=== PATIENT | female | born 1990 | race Caucasian/White ===

== ENCOUNTER 2016-12-12 05:07 | Emergency (ER) | payer SELFPAY ==
[~2016-12-12] VITALS: Ht 157.5 cm; Wt 55.0 kg
[~2016-12-12 05:07] MED LIST: CEPH500C3 PO; IBUP600T26 PO; LEVO100T4 PO
[2016-12-12 05:10] VITALS: BP 136/68; PULSE 96; RESP 20; TEMP 97.6; O2SAT 100
[2016-12-12] MEDS ORDERED: LEXA5TAB PO (05:18)
[2016-12-12] MEDS ORDERED: LEVO100T5 PO (05:18)
[2016-12-12] MEDS ORDERED: LORazepam 2 MG/ML VIAL IM ONE (06:00)
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
--- NOTE | 2016-12-12 15:39 | EKG ---
Date Performed: 12/12/2016 Time Performed: 05:39:49 PTAGE: 26 years EKG: Sinus rhythm WITH SINUS ARRHYTHMIA NORMAL ECG NO PREVIOUS TRACING DOCTOR: Kwame Weir Interpretating Date/Time 12/12/2016 15:38:51
== END 2016-12-12 06:48 | disposition home or self-care (01) ==
LOC: NEPE 05:07
DX: F41.8 Other specified anxiety disorders (principal); E03.9 Hypothyroidism, unspecified; Z72.0 Tobacco use; Z86.59 Personal history of other mental and behavioral disorders
CPT/HCPCS: 93005; 96372; 99284; J2060

== ENCOUNTER 2016-12-26 20:21 | Emergency (ER) | payer OTHER ==
[~2016-12-26 20:21] MED LIST changes: -CEPH500C3 PO; -IBUP600T26 PO; -LEVO100T4 PO; +LEVO100T5 PO; +LEXA5TAB PO
[2016-12-26 20:33] VITALS: BP 129/83; PULSE 88; RESP 20; TEMP 98.3; O2SAT 100
[2016-12-26] MEDS ORDERED: SODIUM CHLORIDE 0.9% FLUSH 10 ML FLUSH IVF PRN (21:00)
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
[2016-12-26 21:28] VITALS: BP 102/53; PULSE 81; RESP 20; O2SAT 99
[2016-12-26 21:35] VITALS: BP 102/53; PULSE 81; RESP 20; O2SAT 99
[2016-12-26 21:40] LABS: AUTOMATED NEUTROPHIL # 14.4 TH/MM3 (1.8-7.7); BASOPHIL # 0.1 TH/MM3 (0-0.2); BASOPHIL % 0.9 % (0.0-2.0); EOSINOPHIL % 0.2 % (0.0-4.0); HEMATOCRIT 41.2 % (35.0-46.0); LYMPH % 6.5 % (9.0-44.0); LYMPHOCYTE # 1.1 TH/MM3 (1.0-4.8); MEAN CELL VOLUME 89.8 FL (80.0-100.0); MEAN CORPUSCULAR HEMOGLOBIN 31.2 PG (27.0-34.0); MEAN CORPUSCULAR HGB CONC 34.7 % (32.0-36.0); MONO % 6.1 % (0.0-8.0); NEUT % 86.3 % (16.0-70.0); PLATELET COUNT 237 TH/MM3 (150-450); RED BLOOD COUNT 4.59 MIL/MM3 (4.00-5.30); RED CELL DISTRIBUTION WIDTH 12.4 % (11.6-17.2); WHITE BLOOD COUNT 16.6 TH/MM3 (4.0-11.0)
[2016-12-26 21:42] LABS: CHLORIDE 108 MEQ/L (98-107); POTASSIUM 3.5 MEQ/L (3.5-5.1); SODIUM (NA) 139 MEQ/L (136-145)
[2016-12-26 21:46] LABS: ANION GAP 10 MEQ/L (5-15); BICARBONATE 21.5 MEQ/L (21.0-32.0); BLOOD UREA NITROGEN 8 MG/DL (7-18)
[2016-12-26 21:49] LABS: ALT (GPT) 30 U/L (10-53); AST (GOT) 41 U/L (15-37); GLOMERULAR FILTRATION RATE 89 ML/MIN (>89)
[2016-12-26 21:51] LABS: TOTAL BILIRUBIN ADULT 0.3 MG/DL (0.2-1.0)
[2016-12-26 21:52] LABS: ALKALINE PHOSPHATASE 52 U/L (45-117)
[2016-12-26 21:54] LABS: BETA HCG QUANT LESS THAN 1 MIU/ML (0-5)
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
[2016-12-26 22:32] LABS: HEMO FLAGS DIFF FINAL
[2016-12-26] MEDS ORDERED: IOHEXOL 350 MG/ML 10 ML VIAL (for RAD DIAG) IVCONTRAST ONE (22:35)
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
[2016-12-26 23:21] VITALS: BP 109/58
[2016-12-26 23:52] LABS: INTERNATIONAL NORMALIZED RATIO 0.9 RATIO; PROTHROMBIN TIME - PATIENT 10.2 SEC (9.8-11.6)
== END 2016-12-26 23:25 | disposition home or self-care (01) ==
LOC: PHED 20:21
DX: S20.219A Contusion of unspecified front wall of thorax, initial encounter (principal); S30.0XXA Contusion of lower back and pelvis, initial encounter; V89.2XXA Person injured in unspecified motor-vehicle accident, traffic, initial encounter; E03.9 Hypothyroidism, unspecified
CPT/HCPCS: 70450; 71010; 71260; 72125; 72170; 73590; 74177; 80053; 84702; 84703; 85025; 85610; 85730; 86850; 86900; 86901; 99285; Q9967

== ENCOUNTER 2017-03-09 14:50 | Emergency (ER) | payer MEDICAID ==
[~2017-03-09] VITALS: Ht 157.5 cm; Wt 57.6 kg
[2017-03-09 15:03] VITALS: BP 118/72; PULSE 94; RESP 16; TEMP 98.1; O2SAT 99
[2017-03-09 16:05] LABS: BLOOD, URINE LARGE (NEG); GLUCOSE,URINE NEG (NEG); KETONE, URINE NEG (NEG); NITRITE,URINE NEG (NEG)
--- NOTE | 2017-03-09 16:08 | PD ---
HPI Chief Complaint: Related Problem Time Seen by Provider: 16:00 Travel History International Travel<30 days: No Contact w/Intl Traveler<30days: No Traveled to known affect area: No History of Present Illness HPI 26-year-old female here for evaluation of vaginal bleeding and positive test. The patient reports that she went to her regular doctor a week ago Wednesday to have a Pap smear done, however because she was having vaginal bleeding and was thought to be on her menstrual period, this test was not performed. Patient reports having light bleeding throughout the week, and yesterday she passed purpleish/tissue-looking material. She started experiencing lower abdominal cramping yesterday, and is continuing to have some cramping today. Cramping is mild to moderate, no modifying factors. She has never been before this. No history of pelvic infections. Last menstrual period was January 29. PFSH Past Medical History Anxiety: Yes Diminished Hearing: No Thyroid Disease: Yes (HYPOTHYROIDISM) ?: LMP: 03/01/17 : 0 Past Surgical History Joint Replacement: Yes Tonsillectomy: Yes Social History Alcohol Use: No Tobacco Use: Yes (1 PPD) Substance Use: No Allergies-Medications (Allergen,Severity, Reaction): Coded Allergies: oxycodone (Unverified Allergy, Severe, ITCHING, 03/09/17) Reported Meds & Prescriptions Reported Meds & Active Scripts Active Reported Levothyroxine (Levothyroxine Sodium) 100 Mcg Tab 100 Mcg PO DAILY Lexapro (Escitalopram Oxalate) 5 Mg Tab 5 Mg PO DAILY Review of Systems Except as stated in HPI: all other systems reviewed are Neg Physical Exam Narrative GENERAL: Well-developed, well-nourished, comfortable, no acute distress. SKIN: Focused skin assessment warm/dry. HEAD: Atraumatic. Normocephalic. EYES: Pupils equal and round. No scleral icterus. No injection or drainage. ENT: Mucous membranes pink and moist. CARDIOVASCULAR: Regular rate and rhythm. No murmur appreciated. RESPIRATORY: No accessory muscle use. Clear to auscultation. Breath sounds equal bilaterally. GASTROINTESTINAL: Abdomen soft, nondistended. Mild lower abdominal/suprapubic tenderness. No rebound or guarding. CLINICAL PATHOLOGIST: Exam performed in the presence of a female nurse. Normal external genitalia. Moderate amount of clotted blood in vaginal vault coming from cervix. Cervical os is open. MUSCULOSKELETAL: No obvious deformities. No clubbing. No cyanosis. No edema. NEUROLOGICAL: Awake and alert. No obvious cranial nerve deficits. Motor grossly within normal limits. Normal speech. PSYCHIATRIC: Appropriate mood and affect; insight and judgment normal. Data Data Last Documented VS Vital Signs Date Time Temp Pulse Resp B/P (MAP) Pulse Ox O2 Delivery O2 Flow Rate FiO2 03/09/17 18:14 76 16 106/52 (70) 99 Room Air 03/09/17 15:03 98.1 Orders Orders Urinalysis - C+S If Indicated (03/09/17 15:10) Ed Urine Pregnancytest Poc (03/09/17 15:10) Complete Blood Count With Diff (03/09/17 16:05) Comprehensive Metabolic Panel (03/09/17 16:05) Gc And Chlamydia Pcr (03/09/17 16:05) Wet Prep Profile (03/09/17 16:05) Beta Hcg (Quant/Titer) (03/09/17 16:42) Us Pelvis (Ques Pr/Ect)W Trans (03/09/17 ) Labs Laboratory Tests Test 03/09/17 15:55 03/09/17 16:15 03/09/17 17:15 Urine Collection Type CLEAN CATCH Urine Color YELLOW Urine Turbidity CLEAR Urine pH 6.0 Urine Specific [place] 1.006 Urine Protein NEG mg/dL Urine Glucose (UA) NEG mg/dL Urine Ketones NEG mg/dL Urine Occult Blood LARGE Urine Nitrite NEG Urine Bilirubin NEG Urine Leukocyte Esterase NEG Urine RBC 0-3 /hpf Urine WBC 0-2 /hpf Urine Squamous Epithelial Cells 6-8 /hpf Microscopic Urinalysis Comment CULT NOT INDICATED Urine Collection Time 15:55 White Blood Count 8.6 TH/MM3 Red Blood Count 4.50 MIL/MM3 Hemoglobin 13.9 GM/DL Hematocrit 41.2 % Mean Corpuscular Volume 91.5 FL Mean Corpuscular Hemoglobin 31.0 PG Mean Corpuscular Hemoglobin Concent 33.9 % Red Cell Distribution Width 12.1 % Platelet Count 283 TH/MM3 Mean Platelet Volume 7.2 FL Neutrophils (%) (Auto) 75.7 % Lymphocytes (%) (Auto) 16.2 % Monocytes (%) (Auto) 6.3 % Eosinophils (%) (Auto) 0.7 % Basophils (%) (Auto) 1.1 % Neutrophils # (Auto) 6.5 TH/MM3 Lymphocytes # (Auto) 1.4 TH/MM3 Monocytes # (Auto) 0.5 TH/MM3 Eosinophils # (Auto) 0.1 TH/MM3 Basophils # (Auto) 0.1 TH/MM3 CBC Comment DIFF FINAL Differential Comment Blood Urea Nitrogen 6 MG/DL Creatinine 0.64 MG/DL Random Glucose 87 MG/DL Total Protein 7.6 GM/DL Albumin 4.1 GM/DL Calcium Level 9.1 MG/DL Alkaline Phosphatase 48 U/L Aspartate Amino Transf (AST/SGOT) 19 U/L Alanine Aminotransferase (ALT/SGPT) 27 U/L Total Bilirubin 0.5 MG/DL Sodium Level 140 MEQ/L Potassium Level 4.0 MEQ/L Chloride Level 109 MEQ/L Carbon Dioxide Level 26.1 MEQ/L Anion Gap 5 MEQ/L Estimat Glomerular Filtration Rate 110 ML/MIN Human Chorionic Gonadotropin, Quant 203 MIU/ML Clue Cells (Wet Prep) NONE SEEN Vaginal Trichomonas (Wet Prep) NONE SEEN Vaginal Yeast (Wet Prep) NONE SEEN MDM Medical Decision Making Medical Screen Exam Complete: Yes Emergency Medical Condition: Yes Differential Diagnosis , ectopic , spontaneous , threatened , inevitable , retained products of conception Narrative Course Initial vital signs show heart rate 94, blood pressure 118/72, pulse ox 99% on room air, oral temp of 98.1F. CBC: WBC 8.6, hemoglobin 13.9, hematocrit 41.2, platelets 283. CMP is unremarkable. Beta hCG is 203. UA: Large occult blood, 6-8 epithelial cells. Wet prep: Negative for use, negative for clue cells, negative for Trichomonas Blood type in our system from December is O+. Pelvic Ultrasound: CONCLUSION: Prominent amount of free fluid in the pelvis. There are 2 cystic lesions in the left ovary measuring greater than 2 cm without increased flow with color Doppler. An intrauterine cannot be demonstrated by ultrasound. Ectopic cannot be excluded. Patient was made aware of all findings. She is resting comfortably. I discussed the case with on-call OB hospitalist Dr. Helms. Patient's cervix is open and there is some blood in the vaginal vault, however she is not actively hemorrhaging. Clotted blood was removed from the vaginal vault. At this point plan is to have the patient return to the emergency department in 48 hours for repeat beta hCG. Patient was informed on when to return to the emergency Department sooner. She verbalizes understanding and agreement with plan. Diagnosis Primary Impression: First trimester bleeding Additional Instructions: Return to the emergency department in 48 hours for repeat beta hCG. Return to the emergency Department sooner for worsening symptoms or any other concerns as discussed. Disposition: 01 DISCHARGE HOME Condition: Stable Tristan Kohler MD Mar 09, 2017 16:08
[2017-03-09 16:13] LABS: COMMENT (UR) CULT NOT INDICATED; CULTURE IF INDICATED CULT NOT INDICATED; METHOD OF COLLECTION CLEAN CATCH; RBC, URINE 0-3 /hpf (0-3); URINE COLOR YELLOW (YELLW/STRAW); WBC, URINE 0-2 /hpf (0-5)
[2017-03-09 16:27] LABS: AUTOMATED NEUTROPHIL # 6.5 TH/MM3 (1.8-7.7); BASOPHIL # 0.1 TH/MM3 (0-0.2); BASOPHIL % 1.1 % (0.0-2.0); EOSINOPHIL # 0.1 TH/MM3 (0-0.4); EOSINOPHIL % 0.7 % (0.0-4.0); HEMATOCRIT 41.2 % (35.0-46.0); LYMPH % 16.2 % (9.0-44.0); LYMPHOCYTE # 1.4 TH/MM3 (1.0-4.8); MEAN CELL VOLUME 91.5 FL (80.0-100.0); MEAN CORPUSCULAR HGB CONC 33.9 % (32.0-36.0); MONO % 6.3 % (0.0-8.0); NEUT % 75.7 % (16.0-70.0); PLATELET COUNT 283 TH/MM3 (150-450); RED CELL DISTRIBUTION WIDTH 12.1 % (11.6-17.2); WHITE BLOOD COUNT 8.6 TH/MM3 (4.0-11.0)
[2017-03-09 16:37] LABS: CHLORIDE 109 MEQ/L (98-107); HEMO FLAGS DIFF FINAL; SODIUM (NA) 140 MEQ/L (136-145)
[2017-03-09 16:40] LABS: ANION GAP 5 MEQ/L (5-15); BICARBONATE 26.1 MEQ/L (21.0-32.0)
[2017-03-09 16:41] LABS: BLOOD UREA NITROGEN 6 MG/DL (7-18)
[2017-03-09 16:44] LABS: ALT (GPT) 27 U/L (10-53); AST (GOT) 19 U/L (15-37); GLOMERULAR FILTRATION RATE 110 ML/MIN (>89)
[2017-03-09 16:45] LABS: TOTAL BILIRUBIN ADULT 0.5 MG/DL (0.2-1.0)
[2017-03-09 16:46] LABS: ALKALINE PHOSPHATASE 48 U/L (45-117)
[2017-03-09 17:02] LABS: BETA HCG QUANT 203 MIU/ML (0-5)
[2017-03-09 18:14] VITALS: BP 106/52; PULSE 76; RESP 16; O2SAT 99
--- NOTE | 2017-03-09 19:30 | RADRPT ---
EXAM DATE/TIME: 03/09/2017 17:42 [facility] COMPARISON: No previous studies available for comparison. INDICATIONS : Bleeding with . LAB(S): Beta-hC MEDICAL HISTORY : Hypothyroidism. Radiation to thyroid. SURGICAL HISTORY : Tonsillectomy. Left ankle surgery. ENCOUNTER: Initial ACUITY: 1 day PAIN SCORE: 3/10 LOCATION: Bilateral pelvis MEASUREMENTS: UTERUS: 7.5 x 4.4 x 3.3 cm ENDOMETRIAL STRIPE: 3 mm RIGHT OVARY: 2.7 x 2.2 x 1.5 cm LEFT OVARY: 3.9 x 3.0 x 2.5 cm FINDINGS: UTERUS: Uterus is anteverted. Myometrium is homogeneous in echotexture. Endometrial stripe is homogeneous h yperechogenicity without evidence of gestational sac. RIGHT OVARY: Ovary contains no mass or significant cystic lesion. Probable follicular cyst measuring 10 x 9 mm.. LEFT OVARY: There are 2 cystic areas one has smooth margins and measures 2.7 x 2.3 x 2.5 cm and the other contain s some mild septation measures 2.3 x 2.2 x 2.1 cm. No increased flow seen on color Doppler in either of these cysts. MISCELLANEOUS: Prominent amount of free fluid in the pelvis. CONCLUSION: Prominent amount of free fluid in the pelvis. There are 2 cystic lesions in the left ovary measuring greater than 2 cm without increased flow with color Doppler. An intrauterine cannot be de monstrated by ultrasound. Ectopic cannot be excluded. Ky Goldberg MD on March 09, 2017 at 19:25 Board Certified Radiologist. This report was verified electronically.
[2017-03-09 19:50] VITALS: BP 93/50; PULSE 82; RESP 16; O2SAT 98
[2017-03-09 21:37] LABS: CHLAMYDIA PCR NOT DETECTED (NOT DETECT); NEISSERIA PCR NOT DETECTED (NOT DETECT)
== END 2017-03-09 19:52 | disposition home or self-care (01) ==
LOC: PHED 14:50
DX: O20.9 Hemorrhage in early pregnancy, unspecified (principal); Z3A.00 Weeks of gestation of pregnancy not specified
CPT/HCPCS: 76700; 76817; 80053; 81001; 84702; 84703; 85025; 87210; 87491; 87591

== ENCOUNTER 2017-03-12 10:35 | Emergency (ER) | payer MEDICAID ==
[~2017-03-12] VITALS: Ht 157.5 cm; Wt 57.0 kg
[2017-03-12 10:40] VITALS: BP 115/56; PULSE 82; RESP 16; TEMP 97.9; O2SAT 100
--- NOTE | 2017-03-12 11:33 | PD ---
HPI Chief Complaint: Related Problem Time Seen by Provider: 11:00 Travel History International Travel<30 days: No Contact w/Intl Traveler<30days: No Traveled to known affect area: No History of Present Illness HPI This is a 26-year-old female who presents to the emergency department with vaginal bleeding that's been going on for 12 days, constant, mild, using 2 pads yesterday associated with some cramping earlier in the week. She came to the emergency department and was told that she was which she was unaware of. She suspects she had a miscarriage because she passed a fair amount of clot earlier in the week. She was asked to return to the emergency department for repeat blood work. She denies any lightheadedness or dizziness. [facility] Past Medical History Anxiety: Yes Diminished Hearing: No Thyroid Disease: Yes (HYPOTHYROIDISM) Influenza Vaccination: No ?: : 1 Past Surgical History Joint Replacement: Yes Tonsillectomy: Yes Social History Alcohol Use: No Tobacco Use: Yes (1 PPD) Substance Use: No Allergies-Medications (Allergen,Severity, Reaction): Coded Allergies: oxycodone (Unverified Allergy, Severe, ITCHING, 03/12/17) Reported Meds & Prescriptions Reported Meds & Active Scripts Active Reported Levothyroxine (Levothyroxine Sodium) 100 Mcg Tab 100 Mcg PO DAILY Lexapro (Escitalopram Oxalate) 5 Mg Tab 5 Mg PO DAILY Review of Systems Except as stated in HPI: all other systems reviewed are Neg Physical Exam Narrative GENERAL:Well appearing, no acute distress SKIN: Focused skin assessment warm and dry. HEAD: Atraumatic. Normocephalic. EYES: Pupils equal and round. No injection or drainage. ENT: Moist mucous membranes NECK: Trachea midline. CARDIOVASCULAR: Regular rate and rhythm. No murmur appreciated. RESPIRATORY: Clear to auscultation. Breath sounds equal bilaterally. GASTROINTESTINAL: Abdomen soft, non-tender, nondistended. MUSCULOSKELETAL: No obvious deformities. NEUROLOGICAL: Awake and alert. No obvious cranial nerve deficits. Moving all extremities. PSYCHIATRIC: Appropriate mood and affect; insight and judgment normal. Data Data Last Documented VS Vital Signs Date Time Temp Pulse Resp B/P (MAP) Pulse Ox O2 Delivery O2 Flow Rate FiO2 03/12/17 11:46 78 16 112/60 (77) 100 Room Air 03/12/17 10:40 97.9 Orders Orders Beta Hcg (Quant/Titer) (03/12/17 11:01) Labs Laboratory Tests Test 03/12/17 11:05 Human Chorionic Gonadotropin, Quant 195 MIU/ML MDM Medical Decision Making Medical Screen Exam Complete: Yes Emergency Medical Condition: Yes Interpretation(s) Afebrile, no tachycardia, normotensive HCG is 195 down from 203 Differential Diagnosis Ectopic , threatened miscarriage, incomplete miscarriage, completed miscarriage Narrative Course This is a 26-year-old female who presents to the emergency department with some vaginal bleeding. She is requesting repeat hCG levels says she was seen 2 days ago and was asked to come back to rule out ectopic . She says she feels well and is otherwise asymptomatic. HCG is decreased from prior consistent with a miscarriage. I did advise her that she should still have routine [facility] follow-up and should have a repeat hCG level her test in 1 week. She expressed understanding. Patient will be discharged home. Diagnosis Primary Impression: Miscarriage Patient Instructions: General Instructions Additional Instructions: If you develop severe or worsening abdominal pain, fever>100.4, persistent vomiting or inability to eat or drink return to the emergency department immediately. Follow-up in one week to have a repeat hCG level drawn Med/Other Pt SpecificInfo: No Change to Meds Disposition: 01 DISCHARGE HOME Condition: Stable Kisha Sabillon MD Mar 12, 2017 11:33
[2017-03-12 11:37] LABS: BETA HCG QUANT 195 MIU/ML (0-5)
[2017-03-12 11:46] VITALS: BP 112/60; PULSE 78; RESP 16; O2SAT 100
== END 2017-03-12 12:00 | disposition home or self-care (01) ==
LOC: PHED 10:35
DX: O03.9 Complete or unspecified spontaneous abortion without complication (principal); E03.9 Hypothyroidism, unspecified; F17.200 Nicotine dependence, unspecified, uncomplicated
CPT/HCPCS: 84702; 99281